=== PATIENT | male | born 1950 | race American Indian/Alaskan Native ===

== ENCOUNTER 2019-05-15 07:54 | Day surgery (SDC) | payer BC ==
[~2019-05-15] VITALS: Ht 175.3 cm; Wt 79.4 kg
[2019-05-15] VITALS (13 sets, daily range): BP systolic 112–173; BP diastolic 62–98
[2019-05-15] MEDS ORDERED: diphenhydrAMINE 25mg capsule PO PRN (08:20)
[2019-05-15] MEDS ORDERED: normal saline 1,000 ML IV SCH ×2 (08:20→13:30)
[2019-05-15] MEDS ORDERED: LORazepam 0.5 MG tablet PO PRN (08:20)
[2019-05-15] MEDS ORDERED: INSU100C10 SQ (08:49)
[2019-05-15] MEDS ORDERED: vitamin D PO (08:49)
[2019-05-15] MEDS ORDERED: LOSA100T57 PO (08:49)
[2019-05-15] MEDS ORDERED: METF500T PO (08:49)
[2019-05-15] MEDS ORDERED: ROSU20TA2 PO (08:49)
[2019-05-15] MEDS ORDERED: ASPI-611 PO (08:49)
[2019-05-15] MEDS ORDERED: CARV-50 PO (08:49)
[2019-05-15] MEDS ORDERED: DULA0.75 (08:49)
[2019-05-15] MEDS ORDERED: CLOP75TA33 PO (08:49)
[2019-05-15] MEDS ORDERED: nitroGLYCERIN-Tridil 50MG/D5W 250 ML IV ONE ×2 (09:26→11:10)
[2019-05-15] MEDS ORDERED: fentaNYL/PF 50MCG/1 ML 2ML syringe ONE ×2 (09:26→11:22)
[2019-05-15] MEDS ORDERED: midazolam 2 mg/2 ml injection ONE ×2 (09:26→11:22)
[2019-05-15] MEDS ORDERED: iohexol 350MG/ML 100ml bottle IV ONE ×2 (09:27→12:19)
[2019-05-15] MEDS ORDERED: iohexol 350 MG/ML 50ML vial IV ONE ×2 (09:27→11:09)
[2019-05-15] MEDS ORDERED: LIDOcaine 1% (10mg/ml)w/preservative injection 20ml MDV ONE ×3 (09:27→14:55)
[2019-05-15] MEDS ORDERED: heparin 1,000unit/ml 10ml vial 10 ML ONE ×2 (09:27→11:09)
[2019-05-15 09:52] LABS: BASOPHILS % (AUTO) 0.6 % (0-1); EOSINOPHILS # (AUTO) 0.1 X10'3 (0-0.9); EOSINOPHILS % (AUTO) 2.6 % (0-6); HEMATOCRIT 37.7 % (42.0-52.0); HEMOGLOBIN 12.6 g/dl (14.0-17.9); LYMPHOCYTES # (AUTO) 1.4 X10'3 (1.1-4.8); LYMPHOCYTES % (AUTO) 26.9 % (21-51); MEAN CORPUSCULAR HEMOGLOBIN 28.5 PG (27.0-31.0); MEAN CORPUSCULAR HGB CONC 33.3 g/dL (33.0-36.5); MEAN CORPUSCULAR VOLUME 85.7 FL (78-98); MEAN PLATELET VOLUME 7.7 FL (7.4-10.4); MONOCYTES # (AUTO) 0.5 X10'3 (0-0.9); MONOCYTES % (AUTO) 8.7 % (2-12); NEUTROPHILS # (AUTO) 3.3 X10'3 (1.8-7.7); NEUTROPHILS % (AUTO) 61.2 % (42-75); PLATELET COUNT 181 X10'3 (140-440); RED CELL DISTRIBUTION WIDTH 13.8 % (11.5-14.5); WHITE BLOOD COUNT 5.4 X10'3 (4.5-11.0)
[2019-05-15 10:08] LABS: ALBUMIN 3.5 G/DL (3.4-5.0); ANION GAP 7 (8-16); BLOOD UREA NITROGEN 13 MG/DL (7-18); BUN/CREATININE RATIO 15.5 (5.4-32.0); CALCIUM 8.8 MG/DL (8.5-10.1); CHLORIDE 108 MMOL/L (99-107); CREATININE 0.84 MG/DL (0.60-1.10); GLUCOSE 129 MG/DL (70-104); POTASSIUM 4.4 MMOL/L (3.5-5.1); SODIUM 142 MMOL/L (135-145); TOTAL CARBON DIOXIDE 27.4 MMOL/L (24-32); eGFR > 90 ML/MIN
[2019-05-15] MEDS ORDERED: iohexol 350 MG/1 ML 200ml bottle ONE (11:09)
[2019-05-15] MEDS ORDERED: heparin 1,000 UNITS/NS 500ml 500 ML ONE (12:03)
[2019-05-15] MEDS ORDERED: heparin 25,000 UNIT/250ml bag 250 ML IV ONE (12:03)
[2019-05-15] MEDS ORDERED: clopidogrel 300mg tablet ONE (12:30)
[2019-05-15] MEDS ORDERED: acetaminophen 325mg tablet PO PRN (13:45)
[2019-05-15] MEDS ORDERED: HYDROcodone/acetaminophen 10/325mg tab PO PRN ×2 (13:45)
[2019-05-15] MEDS ORDERED: cyclobenzaprine 10mg tablet PO PRN (13:45)
[2019-05-15] MEDS ORDERED: proCHLORperazine 10 MG/2 ml inj IV PRN (13:45)
[2019-05-15] MEDS ORDERED: OXAZEpam 15mg capsule PO PRN (13:45)
[2019-05-15] MEDS ORDERED: magnesium hydroxide 30ml (MOM) UD suspension PO PRN (13:45)
[2019-05-15] MEDS ORDERED: docusate sod 100mg capsule PO SCH (20:00)
[2019-05-16 07:21] LABS: ISTAT HGB ART 10.9 g/dl (14.0-18.0); ISTAT Hct ART 32 %PCV (42-52); ISTAT Hct MIX 32 %PCV (42-52); ISTAT O2 SATURATION ARTERIAL 97 % (95-98); ISTAT O2 SATURATION MIX VENOUS 74 % (60-80); ISTAT SOURCE ART; ISTAT SOURCE MIX
[2019-05-16] MEDS ORDERED: clopidogrel 75mg tablet PO SCH (08:00)
== END 2019-05-15 20:05 | disposition home or self-care (01) ==
LOC: SSTAY O 07:54
PROVIDERS: ATTEND Internal Medicine Cardiovascular Disease
DX: I25.810 Atherosclerosis of coronary artery bypass graft(s) without angina pectoris (principal); I25.82 Chronic total occlusion of coronary artery; E11.9 Type 2 diabetes mellitus without complications; I10 Essential (primary) hypertension; E78.5 Hyperlipidemia, unspecified; Z79.899 Other long term (current) drug therapy; Z95.5 Presence of coronary angioplasty implant and graft; Z88.8 Allergy status to other drugs, medicaments and biological substances; Z87.891 Personal history of nicotine dependence
CPT/HCPCS: 36415; 80048; 82803; 82948; 85014; 85025; 85347; 85610; 93005; 93461; 93567; 99152; 99153; C1725; C1769; C1874; C9600; J1644; J2001; J2250; J3010; J7030; J7040; Q0163; Q9967; A4620; A5120; A6258; A6449; C1751; C1760; J3490

== ENCOUNTER 2021-08-13 11:44 | Day surgery (SDC) | payer BC ==
[2021-08-13] VITALS (11 sets, daily range): BP systolic 116–150; BP diastolic 56–79
[~2021-08-13] VITALS: Ht 175.3 cm; Wt 76.3 kg
[~2021-08-13 11:44] MED LIST: ASPI-611 PO; CARV-50 PO; CLOP75TA33 PO; DULA0.75; INSU100C10 SQ; LOSA100T57 PO; METF500T PO; ROSU20TA2 PO; vitamin D PO
[2021-08-13] MEDS ORDERED: LORazepam 0.5 MG tablet PO PRN (12:10)
[2021-08-13] MEDS ORDERED: diphenhydrAMINE 25mg capsule PO PRN (12:10)
[2021-08-13] MEDS ORDERED: normal saline 1,000 ML IV SCH (12:10)
[2021-08-13] MEDS ORDERED: TICA90TA2 PO (12:34)
[2021-08-13] MEDS ORDERED: INSU300I SQ (12:34)
[2021-08-13] MEDS ORDERED: ROSU40TA22 PO (12:34)
[2021-08-13 13:12] LABS: BASOPHILS % (AUTO) 0.4 % (0-1); EOSINOPHILS # (AUTO) 0.1 X10'3 (0-0.9); EOSINOPHILS % (AUTO) 1.3 % (0-6); HEMATOCRIT 35.8 % (42.0-52.0); HEMOGLOBIN 11.8 g/dl (14.0-17.9); LYMPHOCYTES # (AUTO) 2.1 X10'3 (1.1-4.8); LYMPHOCYTES % (AUTO) 25.6 % (21-51); MEAN CORPUSCULAR HGB CONC 33.1 g/dL (33.0-36.5); MEAN CORPUSCULAR VOLUME 84.5 FL (78-98); MEAN PLATELET VOLUME 7.9 FL (7.4-10.4); MONOCYTES # (AUTO) 0.8 X10'3 (0-0.9); MONOCYTES % (AUTO) 9.7 % (2-12); NEUTROPHILS # (AUTO) 5.2 X10'3 (1.8-7.7); PLATELET COUNT 190 X10'3 (140-440); RED BLOOD COUNT 4.23 X10'6 (4.70-6.10); RED CELL DISTRIBUTION WIDTH 13.6 % (11.5-14.5); WHITE BLOOD COUNT 8.3 X10'3 (4.5-11.0)
[2021-08-13] MEDS ORDERED: dextrose 50%-water 50ml dispensing syringe IV ONE (13:19)
[2021-08-13 13:27] LABS: ALBUMIN 3.8 G/DL (3.4-5.0); ANION GAP 6 (8-16); BLOOD UREA NITROGEN 17 MG/DL (7-18); BUN/CREATININE RATIO 18.7 (5.4-32.0); CALCIUM 8.7 MG/DL (8.5-10.1); CHLORIDE 107 MMOL/L (99-107); CREATININE 0.91 MG/DL (0.60-1.10); GLUCOSE 57 MG/DL (70-104); POTASSIUM 3.8 MMOL/L (3.5-5.1); SODIUM 140 MMOL/L (135-145); TOTAL CARBON DIOXIDE 26.7 MMOL/L (24-32); eGFR 83 ML/MIN
[2021-08-13] MEDS ORDERED: midazolam 1 mg/ML 2ml injection ONE (13:27)
[2021-08-13] MEDS ORDERED: fentaNYL/PF 50MCG/1 ML 2ML syringe ONE (13:27)
[2021-08-13] MEDS ORDERED: nitroGLYCERIN-Tridil 50MG/D5W 250 ML IV ONE (13:27)
[2021-08-13] MEDS ORDERED: LIDOcaine 1% 30ml preserv. free vial ONE (13:27)
[2021-08-13] MEDS ORDERED: iohexol 350MG/ML 100ml bottle IV ONE ×3 (13:28→15:43)
[2021-08-13] MEDS ORDERED: heparin 1,000unit/ml 10ml vial 10 ML ONE (13:38)
[2021-08-13] MEDS ORDERED: verapamil 2.5 mg/ml inj IV ONE (14:07)
[2021-08-13] MEDS ORDERED: heparin 25,000 UNIT/250ml bag 250 ML IV ONE (14:38)
[2021-08-13] MEDS ORDERED: ticagrelor 90mg tablet ONE (16:03)
[2021-08-13] MEDS ORDERED: insulin Lispro (HumaLOG) vial - multi-dose SQ SCH (17:00)
== END 2021-08-13 21:30 | disposition home or self-care (01) ==
LOC: SSTAY O 11:44
PROVIDERS: ATTEND Internal Medicine Cardiovascular Disease
DX: R94.39 Abnormal result of other cardiovascular function study (principal); I25.810 Atherosclerosis of coronary artery bypass graft(s) without angina pectoris; I10 Essential (primary) hypertension; E11.9 Type 2 diabetes mellitus without complications; E78.5 Hyperlipidemia, unspecified; I65.29 Occlusion and stenosis of unspecified carotid artery; Z95.0 Presence of cardiac pacemaker; Z79.84 Long term (current) use of oral hypoglycemic drugs; Z79.899 Other long term (current) drug therapy; Z88.8 Allergy status to other drugs, medicaments and biological substances
CPT/HCPCS: 36415; 76937; 80048; 82948; 85025; 85347; 85610; 93005; 93459; 99152; 99153; C1725; C1751; C1769; C1874; C1892; C1894; C9600; J1644; J1815; J2250; J3010; J3490; J7030; Q0163; Q9967; A4620; A6258; A6402

== ENCOUNTER 2021-08-20 12:28 | Day surgery (SDC) | payer BC ==
[2021-08-20] VITALS (10 sets, daily range): BP systolic 104–137; BP diastolic 50–102
[~2021-08-20] VITALS: Ht 175.3 cm; Wt 75.4 kg
[~2021-08-20 12:28] MED LIST changes: -CLOP75TA33 PO; -DULA0.75; +INSU300I SQ; -ROSU20TA2 PO; +ROSU40TA22 PO; +TICA90TA2 PO; -vitamin D PO
[2021-08-20] MEDS ORDERED: normal saline 1,000 ML IV SCH (13:00)
[2021-08-20] MEDS ORDERED: LORazepam 0.5 MG tablet PO PRN (13:00)
[2021-08-20] MEDS ORDERED: diphenhydrAMINE 25mg capsule PO PRN (13:00)
[2021-08-20] MEDS ORDERED: iohexol 350MG/ML 100ml bottle IV ONE (13:10)
[2021-08-20] MEDS ORDERED: heparin 1,000unit/ml 10ml vial 10 ML ONE (13:10)
[2021-08-20] MEDS ORDERED: verapamil 2.5 mg/ml inj IV ONE (13:10)
[2021-08-20] MEDS ORDERED: fentaNYL/PF 50MCG/1 ML 2ML syringe ONE (13:10)
[2021-08-20] MEDS ORDERED: midazolam 1 mg/ML 2ml injection ONE ×2 (13:10→13:42)
[2021-08-20] MEDS ORDERED: nitroGLYCERIN-Tridil 50MG/D5W 250 ML IV ONE (13:11)
[2021-08-20 13:29] LABS: BASOPHILS % (AUTO) 0.8 % (0-1); EOSINOPHILS # (AUTO) 0.2 X10'3 (0-0.9); EOSINOPHILS % (AUTO) 3.4 % (0-6); HEMOGLOBIN 10.4 g/dl (14.0-17.9); LYMPHOCYTES # (AUTO) 1.8 X10'3 (1.1-4.8); LYMPHOCYTES % (AUTO) 31.5 % (21-51); MEAN CORPUSCULAR HEMOGLOBIN 28.2 PG (27.0-31.0); MEAN CORPUSCULAR HGB CONC 32.4 g/dL (33.0-36.5); MEAN CORPUSCULAR VOLUME 86.9 FL (78-98); MEAN PLATELET VOLUME 7.8 FL (7.4-10.4); MONOCYTES # (AUTO) 0.6 X10'3 (0-0.9); MONOCYTES % (AUTO) 10.1 % (2-12); NEUTROPHILS # (AUTO) 3.1 X10'3 (1.8-7.7); NEUTROPHILS % (AUTO) 54.2 % (42-75); PLATELET COUNT 176 X10'3 (140-440); RED BLOOD COUNT 3.68 X10'6 (4.70-6.10); RED CELL DISTRIBUTION WIDTH 14.3 % (11.5-14.5); WHITE BLOOD COUNT 5.8 X10'3 (4.5-11.0)
[2021-08-20 13:39] LABS: ALBUMIN 3.3 G/DL (3.4-5.0); ANION GAP 8 (8-16); BLOOD UREA NITROGEN 16 MG/DL (7-18); CALCIUM 8.5 MG/DL (8.5-10.1); CHLORIDE 107 MMOL/L (99-107); CREATININE 0.89 MG/DL (0.60-1.10); GLUCOSE 123 MG/DL (70-104); MAGNESIUM 1.8 MG/DL (1.5-2.4); SODIUM 141 MMOL/L (135-145); TOTAL CARBON DIOXIDE 26.1 MMOL/L (24-32); eGFR 85 ML/MIN
[2021-08-20] MEDS ORDERED: heparin 25,000 UNIT/250ml bag 250 ML IV ONE (13:51)
[2021-08-20] MEDS ORDERED: ticagrelor 90mg tablet ONE (14:55)
[2021-08-20] MEDS ORDERED: insulin Lispro (HumaLOG) vial - multi-dose SQ SCH (16:40)
== END 2021-08-20 20:15 | disposition home or self-care (01) ==
LOC: SSTAY O 12:28
PROVIDERS: ATTEND Internal Medicine Cardiovascular Disease
DX: I25.810 Atherosclerosis of coronary artery bypass graft(s) without angina pectoris (principal); I10 Essential (primary) hypertension; E78.5 Hyperlipidemia, unspecified; E11.9 Type 2 diabetes mellitus without complications; Z79.899 Other long term (current) drug therapy; Z79.4 Long term (current) use of insulin; Z79.82 Long term (current) use of aspirin
CPT/HCPCS: 36415; 76937; 80048; 82948; 83735; 85025; 85347; 85610; 93005; C1725; C1751; C1769; C1874; C1892; C1894; C9604; J1644; J1815; J2250; J3010; J3490; J7030; Q0163; Q9967; 99152; 99153; A4620; A6258; A6402; C9600

== ENCOUNTER 2023-11-08 06:27 | Day surgery (SDC) | payer MEDICARE, OTHER ==
[2023-11-07 12:53] LABS: BASOPHILS # (AUTO) 0.1 X10'3 (0-0.2); BASOPHILS % (AUTO) 0.8 % (0-1); EOSINOPHILS # (AUTO) 0.3 X10'3 (0-0.9); EOSINOPHILS % (AUTO) 4.5 % (0-6); HEMATOCRIT 42.1 % (42.0-52.0); LYMPHOCYTES # (AUTO) 1.9 X10'3 (1.1-4.8); LYMPHOCYTES % (AUTO) 25.7 % (21-51); MEAN CORPUSCULAR HEMOGLOBIN 29.2 PG (27.0-31.0); MEAN CORPUSCULAR HGB CONC 33.2 g/dL (33.0-36.5); MEAN CORPUSCULAR VOLUME 87.9 FL (78-98); MEAN PLATELET VOLUME 7.6 FL (7.4-10.4); MONOCYTES # (AUTO) 0.7 X10'3 (0-0.9); MONOCYTES % (AUTO) 9.3 % (2-12); NEUTROPHILS # (AUTO) 4.5 X10'3 (1.8-7.7); NEUTROPHILS % (AUTO) 59.7 % (42-75); PLATELET COUNT 206 X10'3 (140-440); RED BLOOD COUNT 4.79 X10'6 (4.70-6.10); RED CELL DISTRIBUTION WIDTH 14.6 % (11.5-14.5); WHITE BLOOD COUNT 7.5 X10'3 (4.5-11.0)
[2023-11-07 12:57] LABS: ALBUMIN 3.5 G/DL (3.4-5.0); ANION GAP 8 (8-16); BLOOD UREA NITROGEN 26 MG/DL (7-18); BUN/CREATININE RATIO 29.9 (10.0-20.0); CALCIUM 8.8 MG/DL (8.5-10.1); CHLORIDE 108 MMOL/L (99-107); CREATININE 0.87 MG/DL (0.60-1.10); GLUCOSE 104 MG/DL (70-104); POTASSIUM 4.1 MMOL/L (3.5-5.1); SODIUM 141 MMOL/L (135-145); TOTAL CARBON DIOXIDE 25.1 MMOL/L (24-32); eGFR 87 ML/MIN
[2023-11-07 13:00] LABS: APTT 25 SECONDS (22-32); PROTHROMBIN TIME 10.9 SECONDS (9.0-12.0)
[~2023-11-08] VITALS: Ht 175.3 cm; Wt 79.6 kg
[2023-11-08] VITALS (12 sets, daily range): BP systolic 128–156; BP diastolic 67–82; PULSE 60–83; RESP 12–19; TEMP 97.9; O2SAT 93–98
[~2023-11-08 06:27] MED LIST changes: -LOSA100T57 PO; +LOSA100T58 PO; -ROSU40TA22 PO; +ROSU40TA71 PO
[2023-11-08] MEDS ORDERED: DAPA10TA PO (06:50)
[2023-11-08] MEDS ORDERED: VALS40TA11 PO (06:50)
[2023-11-08] MEDS ORDERED: ALIR150P6 SQ (06:51)
[2023-11-08] MEDS: LORazepam 0.5 MG tablet PO PRN (07:27)
[2023-11-08] MEDS: diphenhydrAMINE 25mg capsule PO PRN (07:27)
[2023-11-08] MEDS: normal saline 1,000 ML IV SCH (07:27)
[2023-11-08] MEDS ORDERED: iohexol 350MG/ML 100ml bottle IV ONE ×2 (07:34→08:30)
[2023-11-08] MEDS ORDERED: verapamil 2.5 mg/ml inj IV ONE (07:35)
[2023-11-08] MEDS ORDERED: LIDOcaine 1% (10mg/ml) 2ml vial ONE (07:35)
[2023-11-08] MEDS ORDERED: nitroGLYCERIN 500mcg/5mL D5W 5 ML IV ONE (07:36)
[2023-11-08] MEDS ORDERED: fentaNYL/PF 50MCG/1 ML 2ML syringe ONE (07:36)
[2023-11-08] MEDS ORDERED: midazolam 1 mg/ML 2ml injection ONE (07:36)
[2023-11-08] MEDS ORDERED: heparin 1,000unit/ml 10ml vial 10 ML ONE (07:36)
[2023-11-08] MEDS ORDERED: iohexol 350 MG/ML 50ML vial IV ONE (07:36)
--- NOTE | 2023-11-08 10:00 | NUR ---
Pt up to restroom, gait steady, void in toilet, returned to bed.
--- NOTE | 2023-11-08 10:30 | NUR ---
Pt sitting up in bed, eating breakfast.
--- NOTE | 2023-11-08 13:30 | NUR ---
Pt sitting up in bed eating lunch, without issues.
--- NOTE | 2023-11-08 14:10 | NUR ---
Pt up to restroom, gait steady.
== END 2023-11-08 14:50 | disposition home or self-care (01) ==
LOC: SSTAY O 06:27
PROVIDERS: ATTEND Internal Medicine Cardiovascular Disease
DX: I25.10 Atherosclerotic heart disease of native coronary artery without angina pectoris (principal); I25.810 Atherosclerosis of coronary artery bypass graft(s) without angina pectoris; I10 Essential (primary) hypertension; E11.9 Type 2 diabetes mellitus without complications; E78.5 Hyperlipidemia, unspecified; Z79.82 Long term (current) use of aspirin; Z79.899 Other long term (current) drug therapy; Z95.0 Presence of cardiac pacemaker; Z95.1 Presence of aortocoronary bypass graft; Z95.5 Presence of coronary angioplasty implant and graft; Z88.8 Allergy status to other drugs, medicaments and biological substances
CPT/HCPCS: 36415; 80048; 82948; 85025; 85610; 85730; 93005; 93459; 99152; 99153; A6258; A6402; C1725; C1894; J1644; J2001; J2250; J3010; J3490; J7030; Q0163; Q9967; Z7610; 76937